=== PATIENT | female | born 1965 | race African-American/Black ===

== ENCOUNTER 2016-12-26 12:15 | Emergency (ER) | payer SELFPAY ==
[~2016-12-26] VITALS: Ht 154.9 cm; Wt 39.0 kg
[~2016-12-26 12:15] MED LIST: CITA-48 PO; DOXE100C4 PO; LEVA500T PO; MEDR4PAK3 PO; ZIPR1CAP27 PO
[2016-12-26 12:41] VITALS: BP 97/59; PULSE 95; RESP 16; TEMP 98.7; O2SAT 96
[2016-12-26] MEDS ORDERED: ZIPR1CAP8 PO (13:05)
[2016-12-26] MEDS ORDERED: HYDR50CA PO (13:05)
[2016-12-26] MEDS ORDERED: GABA300C5 PO (13:05)
[2016-12-26] MEDS ORDERED: DOXE100C4 PO (13:05)
[2016-12-26] MEDS ORDERED: CITA10TA4 PO (13:05)
[2016-12-26] MEDS ORDERED: KETOROLAC TROMETHAMINE 60 MG/2 ML (IM) VIAL IM ONE (13:15)
--- NOTE | 2016-12-26 13:18 | PD ---
HPI . Cough, lower back pain Chief Complaint: Musculoskeletal Complaint Time Seen by Provider: 12:54 Travel History International Travel<30 days: No Contact w/Intl Traveler<30days: No Traveled to known affect area: No History of Present Illness HPI 51-year-old female presents emergency department for evaluation of cough 4 days and lower back pain 3 days. Patient is unsure if she has been running a fever but she has felt chills or malaise. Patient reports a productive hacking cough. Patient states her only major medical history is anxiety and COPD. Patient still smokes approximately 3 cigarettes a day. Patient denies any injury or trauma occurring prior to the back pain. Patient denies any paresthesias. The pain is localized to the bilateral paraspinal muscles in the lumbar sacral region. Patient denies any dysuria, hematuria, IV drug use, saddle numbness, chest pain, abdominal pain, vomiting, diarrhea, or lightheadedness. PFSH Past Medical History Asthma: Yes Bipolar Disorder: Yes Diminished Hearing: No GERD: Yes Respiratory: Yes (copd) Immunizations Current: No Ulcer: Yes ?: Not Menopausal: Yes Past Surgical History Abdominal Surgery: Yes (HERNIA) Gynecologic Surgery: Yes (HYSTERECTOMY) Hysterectomy: Yes Social History Alcohol Use: Yes (today) Tobacco Use: Yes (3-5 CIG) Substance Use: Yes (OPIATES, COCCAINE ) Allergies-Medications (Allergen,Severity, Reaction): Coded Allergies: ampicillin (Unverified Allergy, Mild, SICK ON STOMACH AND THROW UP, ) Reported Meds & Prescriptions Reported Meds & Active Scripts Active Tessalon Perles (Benzonatate) 100 Mg Cap 100 Mg PO TID PRN Reported Citalopram (Citalopram Hydrobromide) 10 Mg Tab Unknown Dose PO DAILY Hydroxyzine Pamoate 50 Mg Cap 50 Mg PO BID Doxepin (Doxepin HCl) 100 Mg Cap 100 Mg PO HS Gabapentin 300 Mg Cap 300 Mg PO BID Ziprasidone 40 Mg Cap 40 Mg PO BID Review of Systems Except as stated in HPI: all other systems reviewed are Neg Respiratory: Positive: Cough Physical Exam Narrative GENERAL: Well-nourished, well-developed 51-year-old female patient in no acute distress. Nontoxic appearing. SKIN: Focused skin assessment warm/dry. HEAD: Normocephalic. Atraumatic. EYES: No scleral icterus. No injection or drainage. THROAT: No pharyngeal injection, exudates, or tonsillar hypertrophy. Airway is patent. NECK: Supple, trachea midline. No JVD or lymphadenopathy. CARDIOVASCULAR: Regular rate and rhythm without murmurs, gallops, or rubs. RESPIRATORY: Breath sounds equal bilaterally, coarse crackles heard in bilateral bases. No accessory muscle use. GASTROINTESTINAL: Abdomen soft, non-tender, nondistended. MUSCULOSKELETAL: No cyanosis, or edema. BACK: Bilateral paraspinal muscle tenderness. No midline. No ecchymosis, erythema, obvious deformity. No CVA tenderness. Data Data Last Documented VS Vital Signs Date Time Temp Pulse Resp B/P (MAP) Pulse Ox O2 Delivery O2 Flow Rate FiO2 12/26/16 14:39 17 12/26/16 12:41 98.7 95 97/59 (72) 96 Orders Orders Chest, Single Ap (12/26/16 13:10) Ketorolac Inj (Toradol Inj) (12/26/16 13:15) MDM Medical Decision Making Medical Screen Exam Complete: Yes Emergency Medical Condition: Yes Differential Diagnosis Differential diagnoses include but not limited to URI, pneumonia, COPD exacerbation Narrative Course 51-year-old female presents emergency department for cough and lower back pain. Patient has a productive cough that is noted throughout the physical exam. The patient was coughing up thick yellow mucus. Chest x-ray ordered and pending. Patient is complaining of bilateral paraspinal muscular lower back pain that started one day after the cough. Patient denies any injury or trauma to the site. Patient denies any IV drug use. Patient denies any incontinence of urine or stool or saddle numbness. Chest x-ray shows stable abnormal chronic interstitial lung process bilaterally of uncertain etiology. Based on patient's symptoms, clinical presentation, radiological results, vital sign review and physical exam it is not necessary to admit the patient to the hospital or keep the patient in the emergency department for further evaluation. Patient will be given 30 mg IM injection of Toradol for the back pain and discharged home with prescription for Tessalon Perles and Bactrim for COPD/bronchitis exacerbation and instructions to follow-up with her primary care. Diagnosis Primary Impression: Cough in adult Additional Impression: COPD (chronic obstructive pulmonary disease) with acute bronchitis Referrals: Primary Care Physician Patient Instructions: Acute Cough (ED), Back Pain (ED), General Instructions Additional Instructions: Please return to emergency department if your symptoms return or worsen. Follow up with your primary care provider. May take [id number] decongestant such as Mucinex. May use [id number] Motrin and Tylenol as needed for pain or fevers. May use ice or heating pad to lower back for pain. Take medication as prescribed. Med/Other Pt SpecificInfo: Prescription(s) given Scripts Sulfamethoxazole-Trimethoprim (Bactrim DS) 800-160 Mg Tab 1 TAB PO BID for Infection for 5 Days, #10 TAB 0 Refills Prov: Samia Briones 12/26/16 Benzonatate (Tessalon Perles) 100 Mg Cap 100 MG PO TID Y for COUGH, #12 CAP 0 Refills Prov: Samia Briones 12/26/16 Disposition: 01 DISCHARGE HOME Condition: Stable Samia Briones Dec 26, 2016 13:18
--- NOTE | 2016-12-26 14:05 | RADRPT ---
EXAM DATE/TIME: 12/26/2016 13:25 [facility] COMPARISON: CHEST PA & LAT, June 09, 2015, 9:19. INDICATIONS : Cough, chest pain, congestion for 3 days. MEDICAL HISTORY : None. SURGICAL HISTORY : Hysterectomy. ENCOUNTER: Initial ACUITY: 3 days PAIN SCORE: 10/10 LOCATION: Right upper chest FINDINGS: AP upright single view of the chest demonstrates a normal-sized cardiac silhouette. There are abnorma l interstitial opacities bilaterally. Right minor fissure is elevated. No pleural effusion or pneumot horax is identified. Bones and soft tissues demonstrate no acute abnormality. CONCLUSION: Stable abnormal chronic interstitial lung process bilaterally of uncertain etiology. Jasbir Wilder MD on December 26, 2016 at 13:38 Board Certified Radiologist. This report was verified electronically.
[2016-12-26 14:39] VITALS: RESP 17
[2016-12-26] MEDS ORDERED: BENZ100 PO (14:54)
[2016-12-26] MEDS ORDERED: BACT800T5 PO (14:58)
== END 2016-12-26 15:11 | disposition home or self-care (01) ==
LOC: PHEFT 12:15
DX: J44.0 Chronic obstructive pulmonary disease with (acute) lower respiratory infection (principal); J20.9 Acute bronchitis, unspecified; M54.5 Low back pain; F17.210 Nicotine dependence, cigarettes, uncomplicated
CPT/HCPCS: 71010; 96372; 99284; J1885